=== PATIENT | female | born 1995 ===

== ENCOUNTER 2024-07-18 | Inpatient (IN) | payer OTHER ==
[2024-07-18] MEDS ORDERED: fentaNYL 100 MCG/2 ML SDV IVPUSH PRN (00:09)
[2024-07-18] MEDS ORDERED: Sodium Chloride 0.9% 10 ML Syringe FLUSH PRN (00:09)
[2024-07-18] MEDS ORDERED: Acetaminophen 325 MG Tab PO PRN (00:09)
[2024-07-18] MEDS ORDERED: Carboprost Tromethamine 250 MCG/1 ML Amp IM PRN (00:09)
[2024-07-18] MEDS ORDERED: Ondansetron 4 MG/2 ML SDV IVPUSH PRN (00:09)
[2024-07-18] MEDS ORDERED: Nalbuphine HCl 10 MG/ 1ML Amp IM PRN (00:09)
[2024-07-18] MEDS ORDERED: Tranexamic Acid 1,000 MG in Sodium Chloride 0.9% 100 ML IV PRN (00:09)
[2024-07-18] MEDS ORDERED: Oxytocin/Normal Saline 30 UNIT/500 ML BAG IV SCH (00:15)
[2024-07-18] MEDS: Misoprostol 50 MCG (1/2 of 100 MCG) Tab PO PRN (00:49)
[2024-07-18 01:14] LABS: HEMATOCRIT 39.5 % (37.0-47.0); HEMOGLOBIN 13.1 g/dL (12.0-16.0); MEAN CORPUSCULAR HEMOGLOBIN 29.7 pg (27.0-34.0); MEAN CORPUSCULAR HGB CONC 33.2 g/dL (33.0-35.0); MEAN CORPUSCULAR VOLUME 89.6 fL (80-100); RED BLOOD CELL COUNT 4.41 10^6/uL (4.2-5.4); WHITE BLOOD CELL COUNT,WBC 7.8 10^3/uL (5.0-10.0)
[2024-07-18] MEDS: Oxytocin/Normal Saline 30 UNIT/500 ML BAG IV SCH (10:15)
[2024-07-18] MEDS: Lactated Ringers 1,000 ML IV SCH (10:15)
[2024-07-18] MEDS ORDERED: fentaNYL 100 MCG/2 ML SDV ONE (15:56)
[2024-07-18] MEDS ORDERED: Bupivacaine 0.25% 10 ML SDV ONE (15:56)
[2024-07-18] MEDS ORDERED: ePHEDrine 50 MG/ML SDV IVPUSH PRN (16:21)
[2024-07-18] MEDS ORDERED: Phenylephrine HCl In 0.9% NaCl 1 MG/10 ML Syringe IVPUSH PRN (16:21)
[2024-07-18] MEDS ORDERED: Ropivacaine 200 MG in Premix Bag 1 BAG EPIDUR SCH (16:30)
[2024-07-18] MEDS: Lactated Ringers 1,000 ML IV ONE (16:30)
[2024-07-18] MEDS: Misoprostol 50 MCG (1/2 of 100 MCG) Tab PO SCH (20:59)
[2024-07-19] MEDS: hydrOXYzine HCl 25 MG Tab PO ONE (00:48)
[2024-07-19] MEDS: Nalbuphine HCl 10 MG/ 1ML Amp IM ONE (02:26)
[2024-07-19] MEDS: Lidocaine 1% 30 ML SDV INJECT ONE (08:56)
[2024-07-19] MEDS ORDERED: Bupivacaine 0.25% 10 ML SDV ONE (09:59)
[2024-07-19] MEDS ORDERED: fentaNYL 100 MCG/2 ML SDV ONE (09:59)
[2024-07-19] MEDS: Misoprostol 100 MCG Tab RECTAL PRN (17:54)
[2024-07-19] MEDS: Methylergonovine 0.2 MG/1 ML Amp IM PRN (17:56)
[2024-07-19] MEDS ORDERED: Oxytocin 10 Units/1 ML SDV IM PRN (18:20)
[2024-07-19] MEDS ORDERED: Sodium Chloride 0.9% 10 ML Syringe FLUSH PRN (18:20)
[2024-07-19] MEDS ORDERED: Simethicone 80 MG Tab.Chew PO PRN (18:20)
[2024-07-19] MEDS: Ibuprofen 800 MG Tab PO SCH (19:57)
[2024-07-19] MEDS: Witch Hazel Medicated Pads 100/Jar TOP PRN (19:58)
[2024-07-19] MEDS: Benzocaine/Menthol 20%-0.5% Spray 78 GM Cannister TOP PRN (20:00)
[2024-07-19] MEDS: Docusate Sodium 100 MG Cap PO PRN (22:42)
[2024-07-20] MEDS: Ibuprofen 800 MG Tab PO SCH (03:51)
[2024-07-20 06:30] LABS: HEMATOCRIT 29.2 % (37.0-47.0); HEMOGLOBIN 9.5 g/dL (12.0-16.0); MEAN CORPUSCULAR HEMOGLOBIN 29.6 pg (27.0-34.0); MEAN CORPUSCULAR HGB CONC 32.5 g/dL (33.0-35.0); RED BLOOD CELL COUNT 3.21 10^6/uL (4.2-5.4); WHITE BLOOD CELL COUNT,WBC 12.8 10^3/uL (5.0-10.0)
[2024-07-20] MEDS: Acetaminophen 325 MG Tab PO PRN (09:20)
[2024-07-20] MEDS: Ferrous Sulfate 325 MG Tab PO SCH (09:20)
[2024-07-20] MEDS: Prenatal Multivitamin with Calcium/Folic Acid/Iron Tab PO SCH (09:20)
== END 2024-07-21 11:45 | disposition home or self-care (01) | DRG 807 ==
LOC: DL.OB → OBSVTOIN 07-19 17:50
PROVIDERS: ADMIT Family Medicine; ATTEND Family Medicine
PROC: 3E033VJ Introduction of Other Hormone into Peripheral Vein, Percutaneous Approach (ICD-10-PCS; principal; 2024-07-19)
PROC: 3E0R3BZ Introduction of Anesthetic Agent into Spinal Canal, Percutaneous Approach (ICD-10-PCS; principal; 2024-07-19)
PROC: 3E0DXGC Introduction of Other Therapeutic Substance into Mouth and Pharynx, External Approach (ICD-10-PCS; principal; 2024-07-19)
PROC: 10907ZC Drainage of Amniotic Fluid, Therapeutic from Products of Conception, Via Natural or Artificial Opening (ICD-10-PCS; principal; 2024-07-19)
PROC: 10E0XZZ Delivery of Products of Conception, External Approach (ICD-10-PCS; principal; 2024-07-19)
DX: O36.5930 Maternal care for other known or suspected poor fetal growth, third trimester, not applicable or unspecified (principal); Z37.0 Single live birth; Z3A.38 38 weeks gestation of pregnancy
CPT/HCPCS: 36415; 51702; 59409; 85027; A9270-GY; J2210; J2300; J2590; J7120